=== PATIENT | female | born 1980 | race Caucasian/White ===

== ENCOUNTER 2022-08-26 20:41 | Emergency (ER) | payer SELFPAY | END 2022-08-27 00:59 | LOC: JD.ED 20:41 | DX: F15.10 Other stimulant abuse, uncomplicated (principal); F12.10 Cannabis abuse, uncomplicated; K02.9 Dental caries, unspecified; F17.210 Nicotine dependence, cigarettes, uncomplicated; Z86.16 Personal history of COVID-19 | CPT/HCPCS: 36415; 80053; 80143; 80179; 80306; 80307; 81025; 84443; 85025; 99282; 99283 ==